=== PATIENT | female | born 1995 | race Hispanic/Latino ===

== ENCOUNTER 2019-03-04 12:20 | Day surgery (SDC) | payer OTHER ==
[2019-03-04 13:07] VITALS: TEMP 98.5; BMI 40.3
[2019-03-04] MEDS ORDERED: Acetaminophen 500 MG TAB PO SCH (13:15)
--- NOTE | 2019-03-04 13:20 | PDOC.FPROB ---
FMR OB H&P: HPI - History of Present Illness Chief Complaint: Pelvic Pain History of Present Illness: 23 yo @ 37 weeks comes in w/ c/c of pelvic pain. States she has been having this pain for last 3 weeks but pain has worsened today. Reports maybe some occasional ctx this morning but is not having any at this time. Reports FM. Denies ctx at this time. denies vaginal bleeding or discharge. Denies LOF. Denies any urinary symptoms or pain with urination. Denies any headaches or vision changes. Primary Care Physician: Za FMR OB H&P: Current - Care : 2 Para: 0 Gestational age: 36 - OB Labs Blood type: O RH: positive Antibody Screen: negative HIV: negative RPR: negative HepBsAg: negative Rubella: immune Quad screen: negative Urine drug screen: negative 1 hour gtt: 120 GBS: positive FMR OB H&P: History - Past Medical History PMH: None - OB History OB History: D&C last year - Surgical History Sx History: D&C 2017 - Social History Social History: Denies any alcohol, smoking or illicit drug use - Family History Family History: Noncontributory FMR OB H&P: Medications - Current Home Medications: Medication Instructions Recorded Confirmed Type No Known 03/04/19 03/04/19 History Allergies/Adverse Reactions: Allergies Allergy/AdvReac Type Severity Reaction Status Date / Time No Known Allergies Allergy Unverified 03/04/19 13:24 FMR OB H&P: ROS - Review of Systems General: denies: fever/chills, fatigue Cardiovascular: reports: edema (Reports edema in LE). denies: chest pain Respiratory: denies: shortness of breath Gastrointestinal: denies: abdominal pain, cramping, nausea, vomiting Musculoskeletal: reports: pain (Reports back and pelvic pain) Neurologic: denies: numbness, weakness Integumentary: denies: rash Psychological: denies: depression, anxiety FMR OB H&P: Vital Signs - Maternal Vital signs: Vital Signs - First Documented Temp 98.5 F 03/04/19 12:58 BP 118/85 - Heart Tones Baseline: 140 Variability: moderate Acceleration: present Deceleration: absent Category: category 1 [place] contractions every: None seen FMR OB H&P: Physical Exam - Physical Exam General: NAD, awake, alert and oriented HEENT: normocephalic and atraumatic, PERRLA Neck: supple, trachea midline Heart: RRR, normal S1/S2, no murmurs/rubs/gallops, pulses present General: CTAB, no respiratory distress, good air movement, no rales/rhonchi, no wheezing, no retractions Abdomen: soft, gravid, non-tender, bowel sound present Musculoskeletal: normal gait and station - Pelvic Exam SVE: Closed/Thick/High FMR OB H&P: A/P - Problem List (1) Term Status: Acute Code(s): Z34.90 - ENCNTR FOR SUPRVSN OF NORMAL , UNSP, UNSP TRIMESTER Disposition: Pt here with pelvic and back pain. Pt has no signs or reported symptoms of any infection. -Likely Round Ligament pain. -Px 1g tylenol. -Cat 1 strip. No ctx visualized. Pt likely not in labor at this time. SVE- cervix closed. -Discussed pain management with pt. Advised to f/u with PCP. Discussion: Date/Time: 03/04/19 [id number] Addendum - Attending - Attending Attestation Date/Time: 03/04/19 0034 I personally evaluated the patient and discussed the management with Dr. Nevarez. I agree with the History, Examination, Assessment and Plan documented above.
== END 2019-03-04 13:50 | disposition home or self-care (01) ==
LOC: L&D/OP 12:20
PROVIDERS: ATTEND Obstetrics & Gynecology
DX: O99.89 Other specified diseases and conditions complicating pregnancy, childbirth and the puerperium (principal); R10.2 Pelvic and perineal pain; M54.9 Dorsalgia, unspecified; Z3A.37 37 weeks gestation of pregnancy
CPT/HCPCS: 99283

== ENCOUNTER 2019-03-17 12:45 | Day surgery (SDC) | payer OTHER ==
[2019-03-17] MEDS ORDERED: hydrALAZINE 20 MG/ML VIAL SLOW IVP PRN (13:33)
[2019-03-17 13:47] VITALS: BMI 41.6
--- NOTE | 2019-03-17 13:52 | PDOC.FPROB ---
FMR OB H&P: HPI - History of Present Illness Chief Complaint: Decreased movement History of Present Illness: 23yo @ 38.6wks presents to L&D for decreased movement. She states that the last movement she felt was at 9pm last night. This morning after eating breakfast the baby did not move, which is abnormal for her. She states that she was mildly nauseated last night but denies emesis. She denies contractions, loss of fluid or mucus, vaginal bleeding, pain, dysuria , constipation, diarrhea, headache, or changes in vision. Primary Care Physician: Dr. Mendenhall FMR OB H&P: Current - Care : 3 Para: 0010 Gestational age: 38.6 Due date: 03/25/2019 - OB Labs Blood type: O RH: positive Antibody Screen: negative HIV: negative RPR: negative HepBsAg: negative Rubella: immune Quad screen: negative Urine drug screen: negative 1 hour gtt: 120 GBS: positive FMR OB H&P: History - Past Medical History PMH: None - OB History OB History: D&C 2017 - Social History Social History: Denies smoking, alcohol, illicit drug use. - Family History Family History: Non contributory FMR OB H&P: Medications - Current Home Medications: Medication Instructions Recorded Confirmed Type No Known 03/04/19 03/17/19 History Allergies/Adverse Reactions: Allergies Allergy/AdvReac Type Severity Reaction Status Date / Time No Known Allergies Allergy Verified 03/17/19 13:40 FMR OB H&P: ROS - Review of Systems General: denies: fever/chills, weight/appetite/sleep changes Eyes: denies: double vision ENT: denies: nasal congestion, rhinorrhea Cardiovascular: denies: chest pain, palpitation, edema Gastrointestinal: denies: abdominal pain, cramping Genitourinary (Female): reports: vaginal pain, vaginal pressure. denies: dysuria, hematuria, vaginal discharge, vaginal bleeding, contractions Neurologic: denies: numbness, syncope, seizures Integumentary: denies: itching, rash Breast: denies: nipple changes, pain/tenderness Endocrine: denies: cold intolerance, heat intolerance Psychological: denies: depression, anxiety FMR OB H&P: Vital Signs - Maternal Vital signs: 116/65, 107BPM, 98% on RA - Heart Tones Baseline: 150 Variability: moderate Acceleration: present Deceleration: absent Category: category 1 [place] contractions every: None FMR OB H&P: Physical Exam - Physical Exam General: NAD, awake, alert and oriented HEENT: normocephalic and atraumatic, PERRLA, EOMI, no scleral icterus Neck: supple, FROM Chest: non-tender to palpation Heart: RRR, normal S1/S2, no murmurs/rubs/gallops, pulses present, no edema General: CTAB, no respiratory distress, good air movement, no rales/rhonchi, no wheezing Abdomen: soft, gravid, non-tender, bowel sound present Musculoskeletal: pulses present, FROM in all four extremities Skin: no rash, good tugor Lymphatic: no unusual bruising or bleeding Psychiatric: intact recent and remote memory, good judgement and insight - Pelvic Exam Vulva: normal hair distribution FMR OB H&P: A/P - Problem List (1) Term Current Visit: No Status: Acute Code(s): Z34.90 - ENCNTR FOR SUPRVSN OF NORMAL , UNSP, UNSP TRIMESTER Disposition: Home. Assessment and Plan: 1. Term * eIOL scheduled for 03/20/19 2. Decreased movement, resolved * On arrival to L&D she states that she started feeling movement again. * We watched her for 20 minutes on the monitor, category 1 tracing. FHT in the 150s, accells present, no decels. * Denies contractions, loss of fluid, bleeding. Will send home with plan for induction on the . * Instructed her to call PCP or return to L&D if symptoms recur. Discussion: Date/Time: 03/17/19 4887 This H&P was discussed with [] and [] who agree with the above documentation and plan. Addendum - Attending - Attending Attestation Date/Time: 03/17/19 4469 I personally evaluated the patient and discussed the management with Dr. Velasquez. I agree with the History, Examination, Assessment and Plan documented above.
== END 2019-03-17 14:40 | disposition home health service (06) ==
LOC: L&D/OP 12:45
PROVIDERS: ATTEND Obstetrics & Gynecology
DX: O36.8130 Decreased fetal movements, third trimester, not applicable or unspecified (principal); Z3A.38 38 weeks gestation of pregnancy
CPT/HCPCS: 99282

== ENCOUNTER 2019-03-17 21:27 | Inpatient (IN) | payer OTHER ==
[~2019-03-17 21:27] MED LIST: Bupivacaine 0.25% HCL 30 ML VIAL ONE
[2019-03-17 22:46] LABS: Amnisure Test RUPTURE DETECTED (No Rupture)
[2019-03-17 22:47] LABS: Amnisure Internal Control QC ACCEPTABLE (ACCEPTABLE)
[2019-03-17] MEDS ORDERED: NS / Oxytocin 40 units/1000ml 1,000 ML IV PRN (22:54)
[2019-03-17] MEDS ORDERED: Lidocaine 1% (PF) 30 ML VIAL SC PRN (22:54)
[2019-03-17] MEDS ORDERED: Ondansetron PF 4 MG/2 ML Vial IVP PRN (22:54)
[2019-03-17] MEDS ORDERED: Ibuprofen 800 MG TAB PO PRN (22:54)
[2019-03-17] MEDS ORDERED: Meperidine HCl/PF 25 MG/ML VIAL IM/IV PRN (22:54)
[2019-03-17] MEDS ORDERED: HYDROcodone/Acetaminophen 5/325 mg Tablet PO PRN ×2 (22:54)
[2019-03-17] MEDS ORDERED: Acetaminophen 500 MG TAB PO PRN (22:54)
[2019-03-17] MEDS ORDERED: Promethazine HCl 25 MG/ML VIAL IM PRN (22:54)
[2019-03-17] MEDS ORDERED: Butorphanol Tartrate 1 MG/ML VIAL SLOW IVP PRN (22:54)
[2019-03-17] MEDS ORDERED: Zolpidem Tartrate 5 MG TAB PO PRN (22:54)
[2019-03-17] MEDS ORDERED: Lactated Ringer's 1,000 ML IV SCH (23:00)
[2019-03-17] MEDS ORDERED: Penicillin G Potassium 5 MILL.UNITS in Sodium Chloride 0.9% 100 ML IVPB SCH (23:00)
[2019-03-18 00:32] LABS: Hemoglobin 12.3 g/dL (12.0-16.0); Mean Corpuscular HGB CONC 34.5 g/dL (32.0-36.0); Mean Corpuscular Hemoglobin 29.3 pg (27.0-31.0); Mean Corpuscular Volume 84.9 fL (78.0-98.0); Mean Platelet Volume 8.2 fL (7.4-10.4); Platelet Count 293 thou/uL (130-400); RBC Distribution Width 13.4 % (11.5-14.5); Red Blood Cell (RBC) Count 4.21 mill/uL (4.20-5.40); White Blood Cell (WBC) Count 14.7 thou/uL (4.8-10.8)
[2019-03-18] MEDS ORDERED: Misoprostol 100 MCG TAB ONE (01:07)
[2019-03-18] MEDS: Lactated Ringer's 1,000 ML IV SCH ×3 (01:10→14:15)
[2019-03-18 01:11] LABS: Syphilis Antibody Nonreactive (Nonreactive); Syphilis Antibody Index 0.11 S/CO (<1.00 Non-Reactive)
[2019-03-18 01:12] LABS: HBSAg Index 0.31 S/CO (0-0.99); Hep B Surf Ag Non-Reactive S/CO (NonReactive)
[2019-03-18] MEDS ORDERED: Misoprostol 100 MCG TAB PO SCH (01:15)
[2019-03-18] MEDS: Penicillin G 2.5 MILL.units 2.5 MILL.UNITS in Premix Bag 1 BAG IVPB SCH ×6 (01:19→16:00)
[2019-03-18 01:24] VITALS: BMI 41.6
[2019-03-18] MEDS ORDERED: Fentanyl 4 mcg/Bup 0.1% Cadd 100 ML ONE ×2 (07:03→15:15)
[2019-03-18] MEDS ORDERED: Oxytocin 10 UNITS/ML VIAL ONE (08:01)
[2019-03-18] MEDS ORDERED: NS w/ Oxytocin 10 units 500 ML ONE (08:01)
[2019-03-18] MEDS ORDERED: NS w/ Oxytocin 10 units 500 ML IVPB SCH (08:30)
[2019-03-18] MEDS ORDERED: Lidocaine 1.5%/Epinephrine 1:200,000 5 ML AMPUL IJ ONE (08:41)
[2019-03-18] MEDS ORDERED: Lidocaine 1% (PF) 30 ML VIAL ONE (14:42)
[2019-03-18] MEDS ORDERED: NS / Oxytocin 40 units/1000ml 1,000 ML ONE (14:42)
--- NOTE | 2019-03-18 16:05 | PDOC.LDHP ---
Labor and Delivery H&P Chief complaint: contractions HPI: 23 y/o at 39 and 0/7 weeks presents last night with SROM and early labor, but with unfavorable cervix. Dr. Johnson admitted the patient. I order po Cytotec, followed by Riddhi. Current gestational age (weeks): 39 Due date: 03/25/19 Grav: 2 Para: 0 Current complications: none Abnormal US findings: No Current medications: pre-bella vitamins Previous surgical history: none Allergies/Adverse Reactions: Allergies Allergy/AdvReac Type Severity Reaction Status Date / Time No Known Allergies Allergy Verified 03/17/19 13:40 Social history: none - Physical Exam General: NAD, resting Heart: RRR Lungs: nonlabored breathing Abdomen: NTTP Extremeties: no edema FHT: category 1 - Assessment L&D Assessment: term rupture in membranes - Plan Plan: admit to L&D, cervical ripening
[2019-03-18] MEDS ORDERED: Bisacodyl 10 MG SUPP PR PRN (17:21)
[2019-03-18] MEDS ORDERED: Lanolin Ointment 7 GM TUBE TOP PRN (17:21)
[2019-03-18] MEDS ORDERED: Preparation H Ointment 28 GM TUBE PR PRN (17:21)
[2019-03-18] MEDS ORDERED: Milk Of Magnesia 30 ML UDCUP PO PRN (17:21)
[2019-03-18] MEDS ORDERED: Promethazine HCl 25 MG/ML VIAL IM PRN (17:21)
[2019-03-18] MEDS ORDERED: Ondansetron PF 4 MG/2 ML Vial IVP PRN (17:21)
[2019-03-18] MEDS ORDERED: Misoprostol 200 MCG TAB VAG PRN (17:21)
[2019-03-18] MEDS ORDERED: Methylergonovine 0.2 MG/ML VIAL IM PRN (17:21)
[2019-03-18] MEDS ORDERED: NS / Oxytocin 40 units/1000ml 1,000 ML IV SCH (17:21)
[2019-03-18] MEDS ORDERED: diphenhydrAMINE 25 MG CAP PO PRN (17:21)
[2019-03-18] MEDS ORDERED: HYDROcodone/Acetaminophen 5/325 mg Tablet PO PRN ×2 (17:21)
[2019-03-18] MEDS ORDERED: hydrALAZINE 20 MG/ML VIAL SLOW IVP PRN (17:21)
[2019-03-18] MEDS ORDERED: Benzocaine-Menthol 82.5 ML CAN TOP PRN (17:21)
[2019-03-18] MEDS ORDERED: Zolpidem Tartrate 5 MG TAB PO PRN (17:21)
[2019-03-18] MEDS: Docusate Calcium (SURFAK) 240 MG CAP PO SCH (23:01)
[2019-03-18] MEDS: Ibuprofen 800 MG TAB PO SCH (23:03)
[2019-03-19] MEDS: Ferrous Sulfate 325 MG TAB PO SCH ×3 (01:25→18:20)
[2019-03-19 05:58] LABS: Hemoglobin 10.9 g/dL (12.0-16.0)
[2019-03-19] MEDS: Ibuprofen 800 MG TAB PO SCH ×3 (06:20→21:38)
[2019-03-19] MEDS ORDERED: Measles/Mumps/Rubella 10 MCG/0.5 ML VIAL SC ONE (09:00)
[2019-03-19] MEDS ORDERED: Varicella virus, LIVE 0.5 ML VIAL SC ONE (09:00)
[2019-03-19] MEDS ORDERED: Adacel (T-DAP) 0.5 ML SYRINGE IM ONE (09:00)
[2019-03-19] MEDS: Docusate Calcium (SURFAK) 240 MG CAP PO SCH ×2 (09:51→21:38)
[2019-03-19] MEDS: Prenatal Vitamin 1 TAB PO SCH (09:51)
--- NOTE | 2019-03-19 12:30 | PDOC.PP ---
Post Progress Note Post Day #: 1 PO intake tolerated: yes Flatus: yes Ambulation: yes Vital Signs (12 hours) Temp Pulse Resp BP BP Pulse Ox 03/19/19 11:19 98.4 F 96 18 121/60 96 03/19/19 08:00 97.8 F 81 20 115/67 97 03/19/19 04:25 98.2 F 75 16 92/55 L Weight Weight 235 lb - Physical Examination General: NAD Cardiovascular: no m/r/g, RRR Respiratory: clear to auscultation bilaterally, non-labored breathing Abdominal: + bowel sounds, lochia, no distention Extremities: negative homans (B) Neurological: no gross focal deficits Psychiatric: A&Ox3, normal affect Result Diagrams: 03/19/19 05:21 Additional Labs: Post Labs Blood Type O POSITIVE 03/18/19 02:20 Hep Bs Antigen Non-Reactive S/CO (NonReactive) 03/18/19 00:18
[2019-03-20] MEDS: Ibuprofen 800 MG TAB PO SCH ×2 (06:03→14:06)
[2019-03-20 07:44] VITALS: BP 106/56; TEMP 98.5
--- NOTE | 2019-03-20 10:20 | DN ---
DATE OF PROCEDURE: 03/18/2019 TIME OF SERVICE: At 1543 [place] Daylight Savings Time. PREOPERATIVE DIAGNOSIS: Intrauterine at 39 weeks with spontaneous rupture of membranes in early labor. POSTOPERATIVE DIAGNOSIS: Intrauterine at 39 weeks with spontaneous rupture of membranes in early labor. PROCEDURE: Spontaneous vaginal delivery over first-degree laceration of the perineum. FINDINGS: Viable female infant, weighing 2870 g or 6 pounds 5 ounces. Apgars 9 and 9. QUANTITATIVE BLOOD LOSS: 70 mL. COMPLICATIONS: None. PROCEDURE IN DETAIL: The patient presented to [facility] where she was admitted to the labor and delivery service. The patient underwent a normal and uneventful labor with normal cervical dilatation until she was found to be completely dilated. She was then allowed to push and was able to bring the baby down and delivered the baby in a vertex presentation without difficulties. Once the head delivered in occiput anterior position, the shoulders followed spontaneously along with the rest of the baby's body. Once out the baby's mouth and nose were bulb suctioned. The cord was clamped and cut and baby was handed to waiting attendants. Cord blood was collected. Gentle fundal massage was performed and the placenta delivered intact without problems. Hemostasis was assured. Quantitative blood loss was calculated. Inspection of the cervix, vaginal vault, and perineum did not reveal any lacerations needing suturing. Once again, hemostasis was within normal limits and the patient was allowed to recover in the labor and delivery room. Baby went to nursery. Job ID: [id number]
[2019-03-20] MEDS: Prenatal Vitamin 1 TAB PO SCH (10:39)
[2019-03-20] MEDS: Ferrous Sulfate 325 MG TAB PO SCH (10:39)
[2019-03-20] MEDS: Docusate Calcium (SURFAK) 240 MG CAP PO SCH (10:39)
== END 2019-03-20 13:55 | disposition home or self-care (01) | DRG 807 ==
LOC: L&D/OP 21:27 → L&D 23:18 → 3SW 03-18 18:42
PROVIDERS: ADMIT Obstetrics & Gynecology; ATTEND Obstetrics & Gynecology
PROC: 10E0XZZ Delivery of Products of Conception, External Approach (ICD-10-PCS; principal; 2019-03-19)
PROC: 0HQ9XZZ Repair Perineum Skin, External Approach (ICD-10-PCS; 2019-03-19)
DX: O70.0 First degree perineal laceration during delivery (principal); Z37.0 Single live birth; Z3A.39 39 weeks gestation of pregnancy
CPT/HCPCS: 36415; 51702; 84112; 85014; 85018; 85027; 86780; 86850; 86900; 86901; 87340; 90715; 99285; J0595; J2001; J2175; J2540; J2590; J3490; S0020